=== PATIENT | male | born 1995 | race Caucasian/White ===

== ENCOUNTER 2018-11-30 13:15 | Emergency (ER) | payer OTHER ==
[~2018-11-30] VITALS: Ht 177.8 cm; Wt 63.5 kg
[2018-11-30] MEDS ORDERED: NOHOMEMEDICATIONS (13:28)
[2018-11-30 15:29] VITALS: BP 131/77
== END 2018-11-30 15:29 | disposition home or self-care (01) ==
LOC: M.ERS 13:15
DX: S09.8XXA Other specified injuries of head, initial encounter (principal); W22.8XXA Striking against or struck by other objects, initial encounter; Y93.89 Activity, other specified; Y92.89 Other specified places as the place of occurrence of the external cause; Y99.8 Other external cause status